=== PATIENT | male | born 1955 | race Hispanic/Latino ===

== ENCOUNTER → 2017-05-24 | Outpatient (CLI) | payer OTHER | END | disposition home or self-care (01) | LOC: RAH 15:06 | PROVIDERS: ATTEND Nurse Practitioner Family | DX: M75.101 Unspecified rotator cuff tear or rupture of right shoulder, not specified as traumatic (principal) | CPT/HCPCS: 73221 ==

== ENCOUNTER 2019-02-28 15:48 | Emergency (ER) | payer OTHER | END 2019-02-28 17:26 | disposition home or self-care (01) | LOC: EDH 15:48 | DX: S40.012A Contusion of left shoulder, initial encounter (principal); E11.9 Type 2 diabetes mellitus without complications; I25.10 Atherosclerotic heart disease of native coronary artery without angina pectoris; E07.9 Disorder of thyroid, unspecified; W01.0XXA Fall on same level from slipping, tripping and stumbling without subsequent striking against object, initial encounter; Y93.89 Activity, other specified; Y92.89 Other specified places as the place of occurrence of the external cause; Y99.8 Other external cause status | CPT/HCPCS: 73030; 73080; 73090; 73110 ==

== ENCOUNTER → 2024-01-19 | Outpatient (CLI) | payer OTHER ==
[2024-01-19] MEDS: REGADENOSON 0.4 MG/5 ML PF SYG IVP SCH (11:01)
--- NOTE | 2024-01-19 18:34 | HMCSR ---
APPROVED REPORT Height: 5 ft 4in Weight: 140 lbs TEST INDICATIONS CHEST PAIN UNSPECIFIED The imaging protocol used to acquire images was Rest Tc-99m/stress Tc-99m 1 day Consent: The procedure was explained and understood by the patient. Informerd consent was witnessed Rosalia MEDLEY RN First, low dose rest was performed then high dose stress. RESTING DATA: The resting ekg shows: NSR Rest SPECT myocardial perfusion imaging was performed in supine position minutes following the intra venous injection of 12.8 mCi of Tc-99 Sestamibi. Time of rest injection: 09:30: Date: 01/19/2024 PHARMACOLOGIC STRESS: Pharmacologic stress test was performed by injecting regadenoson 0.4 mg IV push followed by the intra venous injection of 32.1 mCi of Tc-99 Sestamibi. Time of stress injection: 10:50: Date: 01/19/2024 Heart Rate at time of stress injection: 52 bpm. The images were gated to evaluate regional wall motion and calculate left ventricular ejection fracti on. STRESS DETAILS Reason for Termination: Infusion complete Stress Symptoms: Dyspnea, Head pressure Max HR Achieved: 82 bpm % of APMHR Achieved: 63 Max Blood Pressure: 132/66 mmHg Stress ECG: NSR Study quality was good. Lung uptake was Normal. Artifact: No artifact LEFT VENTRICLE The left ventricular ejection fraction was calculated to be >65%.TID = 1.22. IMPRESSION Equivocally normal pharmacologic nuclear stress test. Conclusion Equivocally normal [id number] stress test with an LVEF >65% and a TID of 1.22 Small, mild apical fixed perfusion defect suggestive of scar. No ischemia observed. Borderline abnormal TID
== END | disposition home or self-care (01) ==
LOC: RAH 08:50
PROVIDERS: ATTEND Internal Medicine Cardiovascular Disease
DX: R07.9 Chest pain, unspecified (principal); R06.09 Other forms of dyspnea
CPT/HCPCS: 78452; 93017; J2785; A9500 ×2